=== PATIENT | male | born 2000 | race Caucasian/White ===

== ENCOUNTER 2022-06-08 23:26 | Emergency (ER) | payer OTHER ==
[~2022-06-08] VITALS: Wt 59.0 kg
[~2022-06-08 23:26] MED LIST: AUGMENTIN 400 M1 CTB PO; AUGMENTIN ES-6100 ML PO; CEPHALEXIN500 M1 PO; CIPRODEX 0.3%-7.5 ML OT; CLARITIN10 MG PO; LORTAB PO; OMNICEF250 MG/5 M PO; TESSALON PERLE100 MG PO; TYLENOL WITH CO1 TA1 PO; ZYRTEC10 M2 PO
[2022-06-08] MEDS ORDERED: PENICILLIN VK500 MG PO (23:41)
[2022-06-12] MEDS ORDERED: CLEOCIN HCL300 MG PO (08:49)
[2022-06-12] MEDS ORDERED: FLORASTOR250 MG PO (08:49)
== END 2022-06-08 23:58 | disposition home or self-care (01) ==
LOC: ED 23:26
DX: K02.9 Dental caries, unspecified (principal); Z98.890 Other specified postprocedural states

== ENCOUNTER 2023-01-25 18:07 | Emergency (ER) | payer OTHER ==
[~2023-01-25] VITALS: Ht 167.6 cm; Wt 63.5 kg
[~2023-01-25 18:07] MED LIST changes: +CLEOCIN HCL300 MG PO; +FLORASTOR250 MG PO; +PENICILLIN VK500 MG PO
== END 2023-01-25 18:41 | disposition home or self-care (01) ==
LOC: ED 18:07
DX: S01.01XD Laceration without foreign body of scalp, subsequent encounter (principal); Z88.8 Allergy status to other drugs, medicaments and biological substances; Z90.89 Acquired absence of other organs; Z98.890 Other specified postprocedural states; F12.90 Cannabis use, unspecified, uncomplicated; F17.290 Nicotine dependence, other tobacco product, uncomplicated; X58.XXXD Exposure to other specified factors, subsequent encounter

== ENCOUNTER 2023-02-19 17:32 | Emergency (ER) | payer OTHER ==
[~2023-02-19] VITALS: Wt 68.0 kg
[2023-02-19] MEDS ORDERED: ASPIRIN CHEWABL81 MG PO (17:51)
[2023-02-19 19:04] LABS: BILIRUBIN Negative (Negative); BLOOD 3+ (Negative); CLARITY Cloudy (Clear); COLOR Red (Yellow); GLUCOSE Negative (Negative); KETONE Negative (Negative); LEUKO ESTERASE Trace (Negative); NITRITE Negative (Negative); UROBILINOGEN 0.2 E.U./dl (0.0-1.0)
[2023-02-19 19:14] LABS: RBC TNTC rbc/hpf (0-2)
[2023-02-19 19:14] LABS: BASO % 0.5 % (0.0-1.0); EOS # 0.3 10*3/uL (0.0-0.4); EOS % 5.1 % (1.0-4.0); HEMATOCRIT 42.5 % (42.0-52.0); LYMPH # 1.3 10*3/uL (1.3-4.4); LYMPH % 19.7 % (27.0-41.0); MEAN CORPUSCULAR HGB 28.6 pg (27.0-31.0); MEAN CORPUSCULAR HGB CONC 33.6 g/dl (33.0-37.0); MEAN PLATELET VOLUME 9.6 fl (9.6-12.3); MONO # 0.6 10*3/uL (0.1-1.0); MONO % 9.2 % (3.0-9.0); NEUT # 4.3 10*3/uL (2.3-7.9); NEUT % 65.3 % (47.0-73.0); PLATELET COUNT AUTOMATED 280 10*3/uL (130-400); RED CELL DISTRI WIDTH 12.1 % (0-14.5); WHITE BLOOD COUNT 6.6 10*3/uL (4.8-10.8)
[2023-02-19 19:15] LABS: BACTERIA 1+
[2023-02-19 19:35] LABS: ALKALINE PHOSPHATASE 116 U/L (46-116); BUN 9 mg/dl (9-23); CHLORIDE 102 mmol/L (98-107); LIPASE 42 U/L (12-53); POTASSIUM 3.7 mmol/L (3.4-5.1); SGPT/ALT 7 U/L (5-49); TOTAL PROTEIN 7.4 gm/dL (6.0-8.0)
== END 2023-02-19 20:10 | disposition home or self-care (01) ==
LOC: ED 17:32
PROVIDERS: Nurse Practitioner Family
DX: R31.9 Hematuria, unspecified (principal); Z88.8 Allergy status to other drugs, medicaments and biological substances; R73.9 Hyperglycemia, unspecified; D64.9 Anemia, unspecified; Z90.89 Acquired absence of other organs; Z98.890 Other specified postprocedural states; F12.90 Cannabis use, unspecified, uncomplicated; F17.200 Nicotine dependence, unspecified, uncomplicated

== ENCOUNTER 2025-03-31 16:24 | Emergency (ER) | payer OTHER ==
[~2025-03-31] VITALS: Wt 68.0 kg
[~2025-03-31 16:24] MED LIST changes: +ASPIRIN CHEWABL81 MG PO
[2025-03-31] MEDS ORDERED: FLUORESCEIN SODIUM 1 MG STRIP OPH ONE (17:35)
[2025-03-31] MEDS ORDERED: Tetracaine Hydrochloride 0.5% 4 ML BOT OPH ONE (17:35)
[2025-03-31] MEDS ORDERED: OFLOXACIN 0.3% 5 ML BOTTLE OPH ONE (18:20)
[2025-03-31] MEDS ORDERED: OFLOXACIN 10 ML10 M2 OS (18:20)
== END 2025-03-31 18:28 | disposition home or self-care (01) ==
LOC: ED 16:24
DX: S05.02XA Injury of conjunctiva and corneal abrasion without foreign body, left eye, initial encounter (principal); Z88.5 Allergy status to narcotic agent; Z90.89 Acquired absence of other organs; W44.9XXA Unspecified foreign body entering into or through a natural orifice, initial encounter; Y93.89 Activity, other specified; Y92.89 Other specified places as the place of occurrence of the external cause; Y99.8 Other external cause status